=== PATIENT | male | born 1980 | race Caucasian/White ===

== ENCOUNTER → 2023-08-06 | Outpatient (CLI) | payer MEDICARE ==
[2023-08-06 17:48] LABS: HEMATOCRIT(ML) 21.5 % (37.0-53.0); HEMOGLOBIN 6.9 g/dL (13.9-16.3)
== END | disposition home or self-care (01) ==
LOC: NPLAB 15:44
PROVIDERS: ATTEND Family Medicine
DX: N18.6 End stage renal disease (principal)
CPT/HCPCS: 36415; 85014; 85018

== ENCOUNTER → 2023-08-16 | Outpatient (CLI) | payer MEDICARE ==
[2023-08-16 07:45] LABS: ALBUMIN(ML) 1.7 g/dL (3.4-5.0); ALBUMIN/GLOBULIN RATIO 0.548; BUN/CREATININE RATIO 7.57 (10.0-20.0); CALCIUM 8.4 mg/dL (8.4-10.5); CARBON DIOXIDE 31.7 mmol/L (20.0-32); CREATININE SERUM 2.64 mg/dL (0.59-1.40); EST GFR, NON-AA 26.4 (>/=60); POTASSIUM 3.7 mmol/L (3.6-5.2)
== END | disposition home or self-care (01) ==
LOC: NPLAB 06:44
PROVIDERS: ATTEND Family Medicine
DX: E11.29 Type 2 diabetes mellitus with other diabetic kidney complication (principal); N18.6 End stage renal disease; D64.9 Anemia, unspecified; E78.49 Other hyperlipidemia
CPT/HCPCS: 36415; 80053

== ENCOUNTER → 2023-08-29 | Outpatient (CLI) | payer OTHER ==
[~2023-08-29] MED LIST: NS 250ML 250 ML ONE
[2023-08-29 09:30] LABS: HEMATOCRIT(ML) 18.3 % (37.0-53.0)
[2023-08-29 09:45] LABS: HEMOGLOBIN 5.7 g/dL (13.9-16.3)
[2023-08-29 11:36] VITALS: BP 119/61; PULSE 81; RESP 18; TEMP 99
[2023-08-29 11:57] VITALS: BP 128/62; PULSE 81; RESP 18; TEMP 99.3
[2023-08-29 13:05] VITALS: BP 140/74; PULSE 82; RESP 18; TEMP 98.6
[2023-08-29 13:40] VITALS: BP 143/81; PULSE 83; RESP 18; TEMP 98.2
[2023-08-29 14:00] VITALS: BP 146/81; PULSE 82; RESP 18; TEMP 98.2
[2023-08-29 15:20] VITALS: BP 143/76; PULSE 85; RESP 18; TEMP 98.9
== END | disposition home or self-care (01) ==
LOC: SDC 08:45
PROVIDERS: ATTEND Nurse Practitioner Family
DX: I12.0 Hypertensive chronic kidney disease with stage 5 chronic kidney disease or end stage renal disease (principal); E11.22 Type 2 diabetes mellitus with diabetic chronic kidney disease; N18.6 End stage renal disease; D63.1 Anemia in chronic kidney disease; E78.49 Other hyperlipidemia; Z99.2 Dependence on renal dialysis
CPT/HCPCS: 36430; 36415; 85018; 85014; 86900 ×3; 86901; 86885; 86923 ×2; P9016 ×2; J7050; A6258

== ENCOUNTER 2023-09-18 09:16 | Emergency (ER) | payer OTHER ==
[~2023-09-18] VITALS: Ht 165.1 cm; Wt 59.9 kg
[2023-09-18 09:16] VITALS: BP 158/85; PULSE 87; RESP 18; TEMP 98.2; O2SAT 99
[2023-09-18 09:37] LABS: BASOPHIL # 0.1 10^3/uL (0.0-0.1); BASOPHIL % 0.7 % (0.0-0.2); EOSINOPHIL # 0.4 10^3/uL (0.0-0.2); EOSINOPHIL % 3.8 % (0.0-5.0); HEMATOCRIT(ML) 29.9 % (37.0-53.0); HEMOGLOBIN 9.6 g/dL (13.9-16.3); IG % 0.3 % (0.00-0.50); LYMPHOCYTES # 0.78 10^3/uL1 (1.0-4.8); LYMPHOCYTES % 7.2 % (24.0-44.0); MEAN CORP HGB 29.1 pg (26-34); MEAN CORP HGB CONCENTRATION 32.1 g/dL (33-36.5); MEAN CORP VOLUME 90.6 fL (78-100); MONOCYTES # 0.8 10^3/uL (0.3-0.8); MONOCYTES % 7.2 % (5.0-12.0); NEUTROPHIL # 8.8 10^3/uL (1.8-7.7); NEUTROPHILS % 80.8 % (41.0-85.0); RED BLOOD CELL 3.3 10^6/uL (4.50-5.90); RED CELL DISTRIBUTION WIDTH 14.8 % (11.5-14.5); WHITE BLOOD CELL 10.9 10^3/uL (4.5-11.0)
[2023-09-18 09:48] LABS: PROTHROMBIN PROTIME 10.6 SEC (9.7-11.6)
[2023-09-18 09:57] LABS: ALBUMIN(ML) 2.6 g/dL (3.4-5.0); ALBUMIN/GLOBULIN RATIO 0.619; ANION GAP 12.5; BUN/CREATININE RATIO 8.86 (10.0-20.0); CALCIUM 9.2 mg/dL (8.4-10.5); CARBON DIOXIDE 28.5 mmol/L (20.0-32); CREATININE SERUM 4.51 mg/dL (0.59-1.40); EST GFR, NON-AA 14.2 (>/=60)
[2023-09-18] MEDS ORDERED: HUMULIN R IV STA (10:04)
[2023-09-18] MEDS ORDERED: HUMULIN R ONE (10:06)
[2023-09-18 10:13] VITALS: BP 156/83; PULSE 87; RESP 16; O2SAT 99
[2023-09-18 11:14] VITALS: BP 114/68; PULSE 84; RESP 16; O2SAT 97
== END 2023-09-18 11:37 | disposition home or self-care (01) ==
LOC: EDBD 09:16 → ER 09:16
DX: R41.82 Altered mental status, unspecified (principal); R53.1 Weakness; E11.22 Type 2 diabetes mellitus with diabetic chronic kidney disease; E11.65 Type 2 diabetes mellitus with hyperglycemia; G45.9 Transient cerebral ischemic attack, unspecified; N18.6 End stage renal disease; I12.0 Hypertensive chronic kidney disease with stage 5 chronic kidney disease or end stage renal disease; E07.9 Disorder of thyroid, unspecified; E78.00 Pure hypercholesterolemia, unspecified; I25.10 Atherosclerotic heart disease of native coronary artery without angina pectoris; K21.9 Gastro-esophageal reflux disease without esophagitis; Z99.2 Dependence on renal dialysis
CPT/HCPCS: 99285; 96374; 70450; 71045; 80053; 85025; 36415; 84484; 82550; 85610; 85730; 93005; J1815

== ENCOUNTER 2023-09-20 02:20 | Emergency (ER) | payer OTHER ==
[~2023-09-20] VITALS: Ht 172.7 cm; Wt 56.7 kg
[2023-09-20 02:34] VITALS: BP_SYST 164; BP_DIAS 81; BP_DIAS 89; PULSE 82; RESP 18; TEMP 97; O2SAT 99
[2023-09-20 03:40] VITALS: BP 168/87; PULSE 75; RESP 18; O2SAT 98
[2023-09-20] MEDS ORDERED: ANCEF 2 GM/D5W 50ML 50 ML IV ONE (15:38)
== END 2023-09-20 04:21 ==
LOC: ER 02:20 → EDBD 02:20 → ER 04:21
DX: T82.42XA Displacement of vascular dialysis catheter, initial encounter (principal); E07.9 Disorder of thyroid, unspecified; E11.9 Type 2 diabetes mellitus without complications; E78.00 Pure hypercholesterolemia, unspecified; I10 Essential (primary) hypertension; I25.10 Atherosclerotic heart disease of native coronary artery without angina pectoris; K21.9 Gastro-esophageal reflux disease without esophagitis; Z99.2 Dependence on renal dialysis; Y92.89 Other specified places as the place of occurrence of the external cause
CPT/HCPCS: 99284; J0690

== ENCOUNTER 2023-09-20 12:39 | Emergency (ER) | payer OTHER ==
[~2023-09-20] VITALS: Ht 170.2 cm; Wt 54.4 kg
[2023-09-20 12:39] VITALS: BP 155/89; PULSE 82; RESP 18; TEMP 97.9; O2SAT 98
[2023-09-20 13:19] LABS: HEMATOCRIT(ML) 29.4 % (37.0-53.0); HEMOGLOBIN 9.5 g/dL (13.9-16.3); MEAN CORP HGB 29.3 pg (26-34); MEAN CORP HGB CONCENTRATION 32.3 g/dL (33-36.5); MEAN CORP VOLUME 90.7 fL (78-100); RED BLOOD CELL 3.24 10^6/uL (4.50-5.90); RED CELL DISTRIBUTION WIDTH 15.2 % (11.5-14.5); WHITE BLOOD CELL 8.9 10^3/uL (4.5-11.0)
[2023-09-20 13:43] LABS: PROTHROMBIN PROTIME 10.4 SEC (9.7-11.6)
[2023-09-20 13:51] LABS: ANION GAP 15.5; BUN/CREATININE RATIO 8.64 (10.0-20.0); CALCIUM 9.6 mg/dL (8.4-10.5); CARBON DIOXIDE 26.1 mmol/L (20.0-32); EST GFR, NON-AA 9.7 (>/=60); POTASSIUM 5.6 mmol/L (3.6-5.2)
[2023-09-20 13:59] LABS: CREATININE SERUM 6.25 mg/dL (0.59-1.40)
[2023-09-20 14:59] VITALS: BP 163/88; PULSE 77; RESP 18; TEMP 97.9; O2SAT 98
[2023-09-20] MEDS ORDERED: LIDOCAINE 1% VIAL ONE (15:29)
[2023-09-20] MEDS ORDERED: ANCEF 2 GM/D5W 50ML IV STA (15:37)
[2023-09-20 16:32] VITALS: BP 163/88; PULSE 75; RESP 18; TEMP 97.9; O2SAT 98
== END 2023-09-20 16:32 | disposition home or self-care (01) ==
LOC: ER 12:39
DX: U07.1 COVID-19 (principal); N18.6 End stage renal disease; E07.9 Disorder of thyroid, unspecified; E11.22 Type 2 diabetes mellitus with diabetic chronic kidney disease; E78.00 Pure hypercholesterolemia, unspecified; K21.9 Gastro-esophageal reflux disease without esophagitis; Z86.73 Personal history of transient ischemic attack (TIA), and cerebral infarction without residual deficits; Z99.2 Dependence on renal dialysis
CPT/HCPCS: 36556; 99284; 85027; 36415; 80048; 85610; 85730; 96374; 71045; J2001